=== PATIENT | female | born 1970 | race Caucasian/White ===

== ENCOUNTER 2017-12-28 11:55 | Outpatient (RCR) | payer OTHER, SELFPAY ==
--- NOTE | 2018-01-23 07:43 | HP.PTEVAL_ITS ---
Patient's Visit Information SANJU CASTELLANOS is a 47 year old F referred to Physical Therapy by Celine Bhandari MD with a diagnosis of Overuse injury of left leg/foot. Date of Evaluation: 12/28/17 Physical Therapist: Mert Brody - Visit Plan Frequency: 1x/Week Duration: 4 Weeks Plan: Pt. to increase aggressive stretching of G/S complex and anterior ankle mobs (pt. shown how to complete on own). Pt. to complete x5 daily. Pt. consents. Due to high copay to complete on own and follow up with PT as needed. - Subjective Subjective: Pt. is here today for her initial evaluaton with diagnosis of L ankle/foot. Pt. reports having increased pain while training for a running event. Pt. reports having previously taken some time off and is now having increased pain now resuming running again. Pt. reports having increased pain in L calf/ankle and at times anterior foot/ankle. Pt. reports increased pain while running, jogging, but no pain with walking or sitting. Pt. has continued to run with intermittent pain. Pt. denies N/T and is hopeful to get back to running aggressively to complete at her event in [place]. Pt. has not trialed much stretching or exercises, but did take a few weeks off, but slight reduction in symptoms. Pt. reports typically not warming up prior to stretching as well. Pt. has not had any imaging at this point in time. Pt. reports no mechanism of injury, but a gradual increase in symptoms. - Pain L ankle Pain Intensity (Out of 10): 0 Pain Intensity Range: 4 - Objective POSTURE: Pt. has normal posture in stance, slight ankle pronation during SLS phase. Pt. has normal ECTOR, no pain in stance. PALPATION: Pt. has tenderness at distal achilles tendon to palpation. Mild tenderness at anterior tibiotalar joint with palpation. No brusing or edema noted. NEURO- normal all intact. ROM : R ankle- PF 55deg, DF 13deg, EVR 20deg, INV 20deg. L ankle PF 49deg, DF 8deg, EVR 20, INV 20deg. Pt. has normal knee ROM bilaterally. MMT: Pt. has 5/5 throughout bilateral ankles, except 4/5 bilat foot intrinsic flexors, and 4+/5 post tibialis. GAIT: Pt. has slight increase in pes planus during stance phase of gait. Pt. has increased pes planus with running. Pt. reports no pain with walking, but increases with running. Stairs- normal without issues. - Goals Goal 1:: Pt. to be I with HEP. Goal Time Frame: 4-6 Weeks Goal 2:: Pt. to have increased L ankle DF by 8deg reducing stress at anterior ankle with running. Goal Time Frame: 4-6 Weeks Goal 3:: Pt. to run without increase in symptoms. Goal Time Frame: 4-6 Weeks - Rehabilitation Potential Physical Therapy Diagnosis: Pt. has signs and symptoms consistent of L overuse gastroc/soleus symptoms. Pt. has tightness noted with G/S complex with subsequent anterior ankle pain, most likely to poor joint mechanics of talotibial joint. Pt. was educated to increase stretching of G/S complex and exercises to reinforce proper joint mechanics. Pt. to trial on own. Rehabilitation Potential: Excellent - Anticipated Interventions Patient/Client Instruction: Educate patient on: Condition, Plan of Care, Risk Factors, Benefits of Fitness Program For the Purpose of:: To improve health and function, To foster healthy habits, To improve decision making, To facilitate caregiver knowledge, To improve self management, To prevent re-injury, To improve ability to perform tasks related to life management, To improve tolerance to ADL's Therapeutic Exercise to Include: Strength training, Postural training, Flexibilty training, Passive ROM, Active ROM For the Purpose of:: To decrease pain, To increase ROM, To improve nutrient delivery to tissue, To increase oxygenation perfusion, To improve muscle performance and motor function, To improve gait and locomotor functions, To improve health of tissue, To decrease soft tissue restriction, To increase flexibility/ROM Thank you for the opportunity to evaluate your patient. For Medicare and Medicare HMO plans, please review the plan of care and approve it. It will need to be FAXED BACK to us at [phone] for Medicare purposes. Please let me know if there are questions or concerns regarding this plan of care. Physician Signature: Date:
--- NOTE | 2018-04-27 14:01 | HP.PT.NRP ---
HP - Discharge Summary (1) - Patient Information SANJU CASTELLANOS was seen in my office for initial evaluation on 12/28/17. The following Plan of Care was established for this patient: Initial Frequency: 1x/Week Initial Duration: 4 Weeks - Anticipated Interventions Patient/Client Instruction: Educate patient on: Condition, Plan of Care, Risk Factors, Benefits of Fitness Program For the Purpose of:: To improve health and function, To foster healthy habits, To improve decision making, To facilitate caregiver knowledge, To improve self management, To prevent re-injury, To improve ability to perform tasks related to life management, To improve tolerance to ADL's Therapeutic Exercise to Include: Strength training, Postural training, Flexibilty training, Passive ROM, Active ROM For the Purpose of:: To decrease pain, To increase ROM, To improve nutrient delivery to tissue, To increase oxygenation perfusion, To improve muscle performance and motor function, To improve gait and locomotor functions, To improve health of tissue, To decrease soft tissue restriction, To increase flexibility/ROM This patient was last seen in our office 12/28/17. Pertinent comments regarding their Physical therapy will appear below: Pt. was seen for her ankle/foot overuse injury. Pt. was seen for her initial evaluation, but due to high copay was to complete exercises on her own. Pt. has not been seen since her initial evaluation and will be DC from PT at this point in time. At this point I will be discontinuing this patient from physical therapy. I would be happy to see this patient again in the future if found appropriate by the physician. Thank you! Mert Brody
== END 2017-12-28 19:00 | disposition home or self-care (01) ==
LOC: PT 11:55
PROVIDERS: Family Provider Family Medicine; PCP Family Medicine; Visit Provider Family Medicine
DX: M70.8 Other soft tissue disorders related to use, overuse and pressure (principal)
CPT/HCPCS: 97162

== ENCOUNTER → 2020-10-09 09:39 | Outpatient (CLI) | payer BC, SELFPAY ==
--- NOTE | 2020-10-09 09:47 | RAD_ITS ---
STUDY: X-RAY - LEFT FOOT CLINICAL: Dorsal left foot pain in the distal third metatarsal area, no specific injury. TECHNIQUE: 3 view(s) of the foot. COMPARISON: None. FINDINGS: Normal talus, calcaneus, and tarsal bones. Normal visualized subtalar, talonavicular, calcaneocuboid, tarsal and tarsometatarsal articulations. Normal metatarsi. Normal metatarsophalangeal joint of the great toe. Normal tibial and fibular sesamoid bones. Normal interphalangeal joint of the great toe. Normal phalanges of the great toe. Normal second through fifth metatarsophalangeal joints. Normal interphalangeal joints and phalanges of the lesser toes. The soft tissue structures are unremarkable. RAD/Foot min 3 Views IMPRESSION: Normal x-ray examination of the left foot. Electronically Signed: Manav Chan MD at 10:23 EDT Tel , Service support ,
== END ==
PROVIDERS: PCP Family Medicine; Referring Provider Family Medicine; Visit Provider Family Medicine
DX: M79.672 Pain in left foot (principal)
CPT/HCPCS: 73630

== ENCOUNTER → 2020-10-16 08:38 | Outpatient (CLI) | payer BC, SELFPAY ==
[2020-10-16 10:56] LABS: Vitamin D,25 Hydroxy 30.7 ng/mL
[2020-10-16 11:00] LABS: Anion Gap 3 (5-15); BUN 22 mg/dL (7-18); BUN/Creat Ratio 21.6 RATIO (10-20); Calcium,Total 9.1 mg/dL (8.5-10.1); Chloride 108 mmol/L (98-107); Cholesterol 170 mg/dL (200); Creatinine, Serum 1.02 mg/dL (0.55-1.02); EST Glomerular Filtration Rate 61 mL/min (>60); Est Glom Filt Rate - Afr Amer 74 mL/min (>60); Glucose 92 mg/dL (74-106); High Density Lipoprotein 76 mg/dL; Potassium 3.9 mmol/L (3.5-5.1); Sodium Level 140 mmol/L (136-145); Thyroid Stim Hormone (TSH) 1.92 uIU/mL (0.358-3.74); Triglycerides 90 mg/dL; Very Low Density Lipoprotein 18 mg/dL (5-40)
== END ==
PROVIDERS: PCP Family Medicine; Referring Provider Family Medicine; Visit Provider Family Medicine
DX: E55.9 Vitamin D deficiency, unspecified (principal); Z13.220 Encounter for screening for lipoid disorders; R94.6 Abnormal results of thyroid function studies; Z13.1 Encounter for screening for diabetes mellitus
CPT/HCPCS: 36415; 80048; 80061; 82306; 84443

== ENCOUNTER → 2020-10-17 11:03 | Outpatient (CLI) | payer BC, SELFPAY ==
--- NOTE | 2020-10-17 11:09 | MRI_ITS ---
STUDY: MRI LEFT MIDFOOT REASON FOR EXAM: Pain over the left metatarsals, runner. TECHNIQUE: Standardized fat and water weighted pulse sequences were obtained in all 3 orthogonal planes. COMPARISON: Radiographs 10/09/2020. FINDINGS: Normal talonavicular articulation. Normal calcaneocuboid articulation. Normal navicular-cuneiform articulations. Normal intercuneiform articulations. Normal first tarsometatarsal articulation. Normal Lisfranc ligament. Normal second and third tarsometatarsal articulations. Normal cuboid fourth and cuboid fifth tarsometatarsal articulation. Normal first through fifth metatarsi. Normal metatarsophalangeal and interphalangeal joints. There is mild bone edema in the fibular sesamoid (inversion recovery sagittal image 7), suggestive of mild sesamoiditis. Normal tibial sesamoid. Normal visualized distal tibialis anterior tendon. Normal extensor hallucis longus tendon. Normal extensor digitorum longus tendons. Normal peroneus longus tendon and distal insertion. Normal peroneus brevis tendon and distal insertion. Normal intrinsic muscles of the mid and forefoot region. Normal extensor digitorum brevis muscle. There is a pressure lesion at the plantar aspect of the fifth metatarsophalangeal joint (T1 series 7 images 14-16). MRI/Lower Ext/No Jt/w/o IMPRESSION: Mild bone edema of the fibular sesamoid, suggestive of mild sesamoiditis. Pressure lesion at the plantar aspect of the fifth metatarsophalangeal joint. No demonstrated metatarsal stress fracture. Electronically Signed: Manav Chan MD at 12:21 EDT Tel , Service support ,
== END ==
PROVIDERS: PCP Family Medicine; Referring Provider Family Medicine; Visit Provider Family Medicine
DX: M79.672 Pain in left foot (principal)
CPT/HCPCS: 73718

== ENCOUNTER → 2020-12-08 11:53 | Outpatient (CLI) | payer BC, SELFPAY ==
--- NOTE | 2020-12-08 11:59 | RAD_ITS ---
STUDY: X-RAY - RIGHT ANKLE REASON FOR EXAM: Female, 50 years old. Ankle sprain. Pain. TECHNIQUE: 3 view(s) of the ankle. COMPARISON: None. FINDINGS: Normal visualized distal tibia and fibula. Normal medial and lateral malleoli. Normal tibiotalar articulation and ankle mortise. Normal visualized talus and calcaneus. The visualized subtalar, talonavicular, calcaneocuboid and tarsal articulations are normal. Soft tissue swelling over the lateral malleolus. RAD/Ankle min 3 Views IMPRESSION: Lateral malleolar soft tissue swelling as described. No acute osseous abnormality. Electronically Signed: Michael Tolentino MD at 14:03 EDT , Service support ,
== END ==
PROVIDERS: PCP Family Medicine; Referring Provider Family Medicine; Visit Provider Family Medicine
DX: M25.571 Pain in right ankle and joints of right foot (principal)
CPT/HCPCS: 73610

== ENCOUNTER → 2022-07-29 | Outpatient (CLI) | payer OTHER, SELFPAY ==
--- NOTE | 2022-07-29 07:19 | MRI_ITS ---
STUDY: MRI THORACIC SPINE WITHOUT CONTRAST REASON FOR EXAM: Female, 52 years old. Pain mid thoracic R x 20 yrs. TECHNIQUE: Standardized fat and water weighted pulse sequences were obtained in the sagittal and axial planes. COMPARISON: Thoracic spine radiographs 06/18/2022. FINDINGS: Normal kyphosis of the thoracic spine. Mild dextroscoliosis of the thoracic spine. T1-2, T2-3, T3-4, T4-5, T5-6, T6-7, T7-8, T8-9, T9-10, T10-11, T11-12: Mild anterior wedging of the upper T8 vertebral body more than the upper T9 vertebral body. Normal remaining vertebral body heights. Normal thoracic disc space heights. Normal central canal and bilateral intervertebral neural foramina. Normal visualized thoracic cord. Normal conus medullaris that terminates at the L1-L2 disc space level. The soft tissue structures are unremarkable. MRI/Spine Thoracic (Routine) IMPRESSION: 1. Mild old anterior wedge compression fracture of the upper T12 vertebral body more than the upper T9 vertebral body. 2. No MRI evidence of acute or subacute compression fractures of the thoracic spine. 3. No MRI evidence of thoracic extruded disc fragment or spinal stenosis. 4. Normal thoracic spinal cord. Electronically Signed: Gagan Perez MD at 9:31 EST ,
== END | disposition home or self-care (01) ==
PROVIDERS: PCP Family Medicine; Referring Provider Orthopaedic Surgery; Visit Provider Orthopaedic Surgery
DX: M81.8 Other osteoporosis without current pathological fracture (principal); M54.6 Pain in thoracic spine
CPT/HCPCS: 72146

== ENCOUNTER → 2022-12-22 | Outpatient (CLI) | payer OTHER, SELFPAY ==
[2022-12-22 10:48] LABS: Hematocrit 45.1 % (37-47); Hemoglobin 14.3 g/dL (12.0-15.0); Mean Corp Hgb Conc 31.7 g/dL (32-36); Mean Corpuscular Hgb 30.2 pg (27.0-32.0); Mean Corpuscular Volume 95.1 fL (81-99); Mean Platelet Vol. 12.3 fl (6.2-12.0); Platelet Count 243 K/mm3 (150-450); RBC Distribution Width CV 12.6 % (11.6-14.6); RBC Distribution Width SD 44.8 fl (35.1-43.9); Red Blood Count 4.74 M/mm3 (4.2-5.4); White Blood Count 7.1 K/mm3 (4.4-11.0)
[2022-12-22 10:56] LABS: Insulin 8.4 mU/L (2.6-37.6)
[2022-12-22 11:12] LABS: ALB/GLOB Ratio 1.1 RATIO (0.9-2.4); AST(SGOT) 21 U/L (15-37); Alanine Aminotransfer ALT/SGPT 19 U/L (13-56); Albumin, Serum 3.7 g/dL (3.2-5.0); Alkaline Phosphatase 91 U/L (45-117); Anion Gap 4 (5-15); BUN 22 mg/dL (7-18); Calcium,Total 8.8 mg/dL (8.5-10.1); Chloride 111 mmol/L (98-107); Cholesterol 157 mg/dL (200); EST Glomerular Filtration Rate 62 mL/min (>60); Est Glom Filt Rate - Afr Amer 75 mL/min (>60); Globulin 3.3 g/dL (2.2-4.2); Glucose 93 mg/dL (74-106); High Density Lipoprotein 61 mg/dL; Potassium 4.3 mmol/L (3.5-5.1); Sodium Level 143 mmol/L (136-145); Thyroid Stim Hormone (TSH) 3.16 uIU/mL (0.358-3.74); Triglycerides 83 mg/dL; Very Low Density Lipoprotein 17 mg/dL (5-40)
[2022-12-22 12:09] LABS: Hemoglobin A1c 5.6 % (3.8-5.6)
== END | disposition home or self-care (01) ==
LOC: MTLAB 07:58
PROVIDERS: PCP Family Medicine; Referring Provider Family Medicine; Visit Provider Family Medicine
DX: Z13.220 Encounter for screening for lipoid disorders (principal); N95.9 Unspecified menopausal and perimenopausal disorder
CPT/HCPCS: 36415; 80053; 80061; 82306; 82533; 83036; 83525; 84443; 85027

== ENCOUNTER → 2023-02-08 | Outpatient (CLI) | payer OTHER, SELFPAY ==
[2023-02-08 10:58] LABS: Free T3 2.6 pg/mL (2.18-3.98); T4 Free Direct 0.91 ng/dL (0.76-1.46); Thyroid Stim Hormone (TSH) 2.35 uIU/mL (0.358-3.74)
== END | disposition home or self-care (01) ==
LOC: MTLAB 08:20
PROVIDERS: PCP Family Medicine; Referring Provider Family Medicine; Visit Provider Family Medicine
DX: R63.5 Abnormal weight gain (principal)
CPT/HCPCS: 36415; 84403; 84439; 84443; 84481

== ENCOUNTER → 2024-07-06 | Outpatient (CLI) | payer OTHER, SELFPAY ==
[2024-07-06 09:35] LABS: Absolute Lymphocyte Count 2.38 X10^3/uL (0.83-4.51); Absolute Neutrophil Count 5.8 X10^3/uL (2.0-7.7); Basophil# 0.06 X10^3/uL; Basophil% 0.7 % (0-1); Eosinophil# 0.21 X10^3/uL; Eosinophils% 2.3 % (0-5); Lymphocyte # 2.38 X10^3/ul (0.83-4.51); Lymphocyte % 26.4 % (19-41); Mean Corp Hgb Conc 31.3 g/dL (32-36); Mean Corpuscular Hgb 29.5 pg (27.0-32.0); Mean Corpuscular Volume 94.3 fL (81-99); Monocyte# 0.56 X10^3/uL; Monocyte% 6.2 % (0-10); NRBC Flagged by Analyzer 0 % (0-5); Neutrophil # 5.78 X10^3/uL (2.7-7.7); Neutrophil % 64.1 % (47-70); Platelet Count 279 K/mm3 (150-450); RBC Distribution Width CV 12.8 % (11.6-14.6); RBC Distribution Width SD 44.3 fl (35.1-43.9); Red Blood Count 5.09 M/mm3 (4.2-5.4)
[2024-07-06 10:07] LABS: Hemoglobin A1c 5.7 % (3.8-5.6)
[2024-07-06 10:21] LABS: AST(SGOT) 22 U/L (15-37); Alanine Aminotransfer ALT/SGPT 37 U/L (13-56); Albumin, Serum 3.9 g/dL (3.2-5.0); Alkaline Phosphatase 121 U/L (45-117); Anion Gap 5 (5-15); BUN 15 mg/dL (7-18); BUN/Creat Ratio 13.9 RATIO (10-20); Calcium,Total 9.9 mg/dL (8.5-10.1); Chloride 106 mmol/L (98-107); Cholesterol 211 mg/dL (200); Creatinine, Serum 1.08 mg/dL (0.55-1.02); EST Glomerular Filtration Rate 56 mL/min (>60); Est Glom Filt Rate - Afr Amer 68 mL/min (>60); Globulin 4.1 g/dL (2.2-4.2); Glucose 103 mg/dL (74-106); High Density Lipoprotein 95 mg/dL; Sodium Level 140 mmol/L (136-145); Triglycerides 192 mg/dL; Very Low Density Lipoprotein 38 mg/dL (5-40)
== END | disposition home or self-care (01) ==
PROVIDERS: PCP Family Medicine; Referring Provider Family Medicine; Visit Provider Family Medicine
DX: Z00.00 Encounter for general adult medical examination without abnormal findings (principal); R53.83 Other fatigue; Z13.220 Encounter for screening for lipoid disorders; Z13.1 Encounter for screening for diabetes mellitus
CPT/HCPCS: 36415; 80053; 80061; 82306; 82533; 83036; 84443; 85025

== ENCOUNTER 2024-09-27 16:21 | Outpatient (CLI) | payer OTHER, SELFPAY ==
[2024-09-27 19:21] LABS: Troponin T High Sensitivity < 6 ng/L (<=14)
== END 2024-09-27 23:59 | disposition home or self-care (01) ==
LOC: MFPLAB 16:22
PROVIDERS: PCP Family Medicine; Referring Provider Family Medicine; Visit Provider Family Medicine
DX: Z00.00 Encounter for general adult medical examination without abnormal findings (principal)
CPT/HCPCS: 36415; 84484

== ENCOUNTER → 2024-10-30 | Outpatient (CLI) | payer OTHER, SELFPAY ==
--- NOTE | 2024-10-30 11:00 | EKG12_ITS ---
Test Reason : CP Blood Pressure : */* mmHG Vent. Rate : 81 BPM Atrial Rate : 81 BPM P-R Int : 152 ms QRS Dur : 102 ms QT Int : 398 ms P-R-T Axes : 61 -68 47 degrees QTcB Int : 462 ms Normal sinus rhythm Incomplete right bundle branch block Left anterior fascicular block Possible Inferior infarct , age undetermined Possible Anterolateral infarct , age undetermined Abnormal ECG No previous ECGs available Confirmed by RAKESH HARRIS MD ([id number]), editor trade journal TALHA LY ([id number]) on 10/31/2024 1:13:24 PM Referred By: Alo Gutierrez Confirmed By: RAKESH HARRIS MD
--- NOTE | 2024-10-30 11:01 | ECHOD_ITS ---
Reason For Study Reason For Study: Chest Pain Procedure This was a 2D Doppler, Color Flow transthoracic echocardiogram. Exam performed in department. Left Ventricle Normal LV size. The estimated ejection fraction is 65 %. No evidence for diastolic dysfunction. No regional wall motion abnormalities noted. Right Ventricle Normal RV size. Normal systolic function. Atria The left and right atria are normal. No doppler evidence for ASD. Mitral Valve There is no mitral valve stenosis. Trivial mitral valve insufficiency. Tricuspid Valve There is no tricuspid stenosis. Trivial tricuspid valve insufficiency. Pulmonary artery systolic pressure is 20 mmHg. Aortic Valve Trisinus/trileaflet aortic valve. There is no aortic stenosis. No aortic valve insufficiency. Pulmonic Valve There is no pulmonic valvular stenosis. No pulmonic valve insufficiency. Great Vessels Normal sized aortic root. Pericardium/Pleural No pericardial effusion. MMode/2D Measurements & Calculations LVIDd: 3.6 cm IVSd: 1.3 cm Ao root diam: 3.7 cm LVIDs: 2.4 cm LVPWd: 0.91 cm RVDd: 3.0 cm FS: 32.6 % LAV(MOD-bp): 26.2 ml LVAd ap4: 23.3 cm2 SV(MOD-sp4): 33.7 ml LAV(MOD-bp) Indexed: 14.4 ml/m2 LVLd ap4: 7.5 cm SI(MOD-sp4): 18.6 ml/m2 LAV(MOD-sp2): 28.7 ml EDV(MOD-sp4): 59.7 ml LAV(MOD-sp4): 21.7 ml EDV(sp4-el): 61.6 ml LVAs ap4: 13.7 cm2 LVLs ap4: 6.1 cm ESV(MOD-sp4): 26.0 ml ESV(sp4-el): 26.1 ml EF(MOD-sp4): 56.4 % EF(sp4-el): 57.6 % SV(sp4-el): 35.5 ml LA A4 area: 10.9 cm2 LA dimension(2D): 3.1 cm RA A4 area: 10.3 cm2 TAPSE: 1.9 cm Time Measurements MV dec time: 0.24 sec Doppler Measurements & Calculations MV E max chico: 85.6 cm/sec Lat Peak E' [place]: 13.9 cm/sec Med Peak E' [place]: 10.5 cm/sec MV A max chico: 86.9 cm/sec E/E' lat: 6.2 E/E' med: 8.1 MV E/A: 0.98 MV V2 max: 104.2 cm/sec MV P1/2t max ch[place]: 105.7 cm/sec Ao V2 max: 133.1 cm/sec MV max P.3 mmHg MV P1/2t: 82.7 msec Ao max P.1 mmHg MV V2 mean: 70.5 cm/sec Ao V2 mean: 98.0 cm/sec MV mean P.3 mmHg MV dec slope: 374.2 cm/sec2 Ao mean P.3 mmHg MV V2 VTI: 28.9 cm MVA(P1/2t): 2.7 cm2 Ao V2 VTI: 30.4 cm AV (velocity ratio): 0.82 LV V1 max: 112.7 cm/sec TR max chico: 195.9 cm/sec LV V1 max P.1 mmHg TR max P.4 mmHg LV V1 mean P.2 mmHg LV V1 mean: 85.2 cm/sec LV V1 VTI: 24.9 cm ECHO/Echo Complete Interpretation Summary The estimated ejection fraction is 65 %. No evidence for diastolic dysfunction. Trivial mitral valve insufficiency. Ordering Physician: Alo Gutierrez Referring Physician: Alo Gutierrez Performed By: Bashir Nicholas RCS
== END | disposition home or self-care (01) ==
PROVIDERS: PCP Family Medicine; Referring Provider Family Medicine; Visit Provider Family Medicine
DX: F41.9 Anxiety disorder, unspecified (principal); R07.9 Chest pain, unspecified
CPT/HCPCS: 93005; 93306